=== PATIENT | female | born 1990 | race Caucasian/White ===

== ENCOUNTER 2018-01-21 18:21 | Emergency (ER) | payer MEDICAID ==
[~2018-01-21] VITALS: Ht 167.6 cm; Wt 136.8 kg
[~2018-01-21 18:21] MED LIST: DIPH1TAB PO; GLIM1TAB46 PO; HYDR-569 PO; HYDR30CR79 TP; ONDA4TAB12 PO
[2018-01-21] MEDS ORDERED: dexamethasone sod phosphate 10mg/ml inj PO STA (19:46)
[2018-01-21] MEDS ORDERED: LIDOcaine Viscous 15ml cup MM PRN (19:50)
[2018-01-21] MEDS ORDERED: acetaminophen 325mg tablet PO ONE (19:50)
[2018-01-21] MEDS ORDERED: ondansetron 4mg rapidly disintigrating tab PO ONE (19:50)
[2018-01-21] MEDS ORDERED: ketorolac trometh. 30mg/ml inj. IM ONE (19:50)
[2018-01-21 20:27] LABS: URINE HCG NEGATIVE (NEG)
[2018-01-21] MEDS ORDERED: PENI500T2 PO (21:03)
[2018-01-21] MEDS ORDERED: ONDA8TAB9 PO (21:09)
[2018-01-21 21:19] VITALS: BP 125/83
== END 2018-01-21 21:20 | disposition home or self-care (01) ==
LOC: ER 18:22
DX: J02.0 Streptococcal pharyngitis (principal); J45.909 Unspecified asthma, uncomplicated; E11.9 Type 2 diabetes mellitus without complications; E03.9 Hypothyroidism, unspecified; Z91.040 Latex allergy status; Z79.899 Other long term (current) drug therapy
CPT/HCPCS: 81025; 87880; 96372; 99284; J1100; J1885

== ENCOUNTER 2018-10-04 20:57 | Emergency (ER) | payer MEDICAID ==
[~2018-10-04] VITALS: Ht 162.6 cm; Wt 154.0 kg
[~2018-10-04 20:57] MED LIST changes: +HYDR-4383 PO; -HYDR-569 PO; +ONDA8TAB9 PO
[2018-10-04] MEDS ORDERED: methylPREDNISolone sod succ 125mg/2ml vial IV ONE (22:00)
[2018-10-04] MEDS ORDERED: albuterol 2.5 MG/3 ML nebule NEB ONE ×2 (22:00→23:20)
[2018-10-04] MEDS ORDERED: LORazepam 2 mg/ml vial IV ONE (22:00)
[2018-10-04] MEDS ORDERED: magnesium 1gm/100ml D5W IVPB 100 ML IV SCH ×2 (23:20→23:40)
[2018-10-04] MEDS ORDERED: PRED20TA PO (23:21)
[2018-10-04] MEDS ORDERED: CETI-102 PO (23:21)
[2018-10-04] MEDS ORDERED: ALBU0.63 NEB (23:23)
[2018-10-04] MEDS ORDERED: NEBU1KIT3 MC (23:23)
[2018-10-04] MEDS ORDERED: NS IV SCH (23:25)
[2018-10-04] MEDS ORDERED: MAGNESIUM IV SCH (23:25)
[2018-10-04] MEDS ORDERED: magnesium 1gm/100ml D5W IVPB 100 ML IV ONE ×2 (23:35→23:55)
[2018-10-05 00:55] VITALS: BP 138/79
== END 2018-10-05 00:57 | disposition home or self-care (01) ==
LOC: ER 20:58
DX: J45.901 Unspecified asthma with (acute) exacerbation (principal); E11.9 Type 2 diabetes mellitus without complications; E03.9 Hypothyroidism, unspecified; Z98.890 Other specified postprocedural states; Z91.040 Latex allergy status; Z79.899 Other long term (current) drug therapy
CPT/HCPCS: 71045; 93005; 94640; 94760; 96365; 96375; 99284; J2060; J2930; 99283; J3475

== ENCOUNTER 2018-11-24 13:31 | Emergency (ER) | payer MEDICAID ==
[~2018-11-24] VITALS: Ht 167.6 cm; Wt 154.6 kg
[~2018-11-24 13:31] MED LIST changes: +ALBU0.63 NEB; +CETI-102 PO; +NEBU1KIT3 MC
[2018-11-24 16:19] LABS: URINE HCG NEGATIVE (NEG)
[2018-11-24 17:23] VITALS: BP 161/81
== END 2018-11-24 17:24 | disposition home or self-care (01) ==
LOC: ER 13:31
DX: E11.319 Type 2 diabetes mellitus with unspecified diabetic retinopathy without macular edema (principal); H35.63 Retinal hemorrhage, bilateral; E66.9 Obesity, unspecified; J45.909 Unspecified asthma, uncomplicated; E03.9 Hypothyroidism, unspecified; Z98.890 Other specified postprocedural states; Z91.040 Latex allergy status; Z79.899 Other long term (current) drug therapy
CPT/HCPCS: 70450; 81025; 99284

== ENCOUNTER 2019-06-03 23:15 | Emergency (ER) | payer MEDICAID ==
[~2019-06-03] VITALS: Ht 167.6 cm; Wt 159.1 kg
[2019-06-03 23:24] VITALS: BP 145/95
[2019-06-04] MEDS ORDERED: LIDOcaine 1% w/epiNEPHrine 1:200,000 30ml vial IM ONE (00:30)
[2019-06-04] MEDS ORDERED: HYDR-3965 PO (01:09)
[2019-06-04] MEDS ORDERED: SULF1TAB49 PO (01:09)
== END 2019-06-04 01:20 | disposition home or self-care (01) ==
LOC: ER 23:16
DX: N76.4 Abscess of vulva (principal); J45.909 Unspecified asthma, uncomplicated; E11.9 Type 2 diabetes mellitus without complications; E03.9 Hypothyroidism, unspecified; F32.9 Major depressive disorder, single episode, unspecified; Z98.890 Other specified postprocedural states; Z91.040 Latex allergy status; Z79.899 Other long term (current) drug therapy
CPT/HCPCS: 56405; 99284